=== PATIENT | male | born 2000 | race Caucasian/White ===

== ENCOUNTER 2025-04-29 22:39 | Emergency (ER) | payer OTHER ==
[~2025-04-29] VITALS: Ht 182.9 cm; Wt 66.3 kg
[2025-04-30] MEDS: AUGMENTIN 875 MG TAB PO ONE (05:02)
[2025-04-30] MEDS: UNRESOLVED CLARIFICATION ENTRY XX STA (05:03)
[2025-04-30] MEDS: IBUPROFEN 600 MG TAB PO ONE (05:24)
[2025-04-30] MEDS: TETANUS/DIPHTH/ACEL. PERTUSSIS 0.5 ML SYR IM.IMMUN ONE (05:26)
[2025-04-30 05:37] VITALS: TEMP 98.6
[2025-04-30] MEDS ORDERED: AMOX875T2 PO (06:47)
[2025-04-30 06:54] VITALS: BP 128/69; O2SAT 99
== END 2025-04-30 06:56 | disposition home or self-care (01) ==
LOC: M ED 22:39
DX: S61.230A Puncture wound without foreign body of right index finger without damage to nail, initial encounter (principal); W55.01XA Bitten by cat, initial encounter; Y92.009 Unspecified place in unspecified non-institutional (private) residence as the place of occurrence of the external cause; Y93.89 Activity, other specified; Y99.9 Unspecified external cause status; Z79.2 Long term (current) use of antibiotics; Z23 Encounter for immunization

== ENCOUNTER 2025-05-31 12:40 | Emergency (ER) | payer OTHER ==
[~2025-05-31] VITALS: Ht 182.9 cm; Wt 68.8 kg
[~2025-05-31 12:40] MED LIST: AMOX875T2 PO
[2025-05-31 14:29] LABS: KETONE, URINE AUTO RFX NEGATIVE (NEGATIVE); NITRITE, URINE AUTO RFX NEGATIVE (NEGATIVE); RBC, URINE AUTO RFX 1 /HPF (0-3); SQUAM EPITHELIAL CELL UR AURFX 1 /HPF (0-6)
[2025-05-31 14:35] LABS: LEUKOCYTE ESTERASE UR AUTO RFX 1+ (NEGATIVE); WBC, URINE AUTO RFX 14 /HPF (0-3)
[2025-05-31 15:13] LABS: Trichomonas vaginalis (AMP) NOT DETECTED (NEGATIVE)
[2025-05-31 15:35] LABS: GC DNA AMPLIFICATION NEGATIVE (NEGATIVE)
[2025-05-31] MEDS ORDERED: AMOX875T2 PO (16:17)
[2025-05-31 16:26] VITALS: BP 129/61; TEMP 97.9; O2SAT 98
[2025-05-31] MEDS: LIDOCAINE 1% SDV 5 ML VIAL DILUENT ONE (16:31)
== END 2025-05-31 16:39 | disposition home or self-care (01) ==
LOC: M ED 12:40
DX: N48.1 Balanitis (principal); Z79.2 Long term (current) use of antibiotics
CPT/HCPCS: 81001; 87086; 87661; 87810; 87850; 96372; 99283; J0696